=== PATIENT | female | born 1970 | race Hispanic/Latino ===

== ENCOUNTER 2019-09-23 20:09 | Observation (INO) | payer OTHER ==
[~2019-09-23] VITALS: Ht 162.6 cm; Wt 81.1 kg
[2019-09-23] MEDS ORDERED: KETOROLAC TROMETHAMINE 30MG/ML ONE (20:47)
[2019-09-23 20:53] LABS: BASOPHILS % (AUTO) 0.8 % (0.0-5.0); EOSINOPHILS % (AUTO) 2.7 % (0.0-8.0); HEMATOCRIT 48.7 % (36-48); LYMPHOCYTES % (AUTO) 19.7 % (21.0-51.0); MEAN CORPUSCULAR HEMOGLOBIN 28.3 pg (27.0-33.0); MEAN CORPUSCULAR HGB CONC 32.9 g/dL (32.0-36.0); MONOCYTES % (AUTO) 12.2 % (3.0-13.0); NEUTROPHILS % (AUTO) 64.1 % (40.0-77.0); PLATELET COUNT (AUTO) 222 K/uL (130-400); RED BLOOD CELL COUNT(AUTO) 5.66 MIL/uL (4.00-5.50); WHITE BLOOD COUNT (AUTO) 5.9 K/uL (4.8-10.8)
[2019-09-23 21:13] LABS: CREATININE 0.5 mg/dL (0.5-1.5); POTASSIUM 3.8 mmol/L (3.5-5.1)
[2019-09-23 21:18] LABS: ALBUMIN 3.6 g/dL (3.5-5.0); BILIRUBIN,TOTAL 0.3 mg/dL (0.2-1.0); INR 0.93 (0.85-1.15); PARTIAL THROMBOPLASTIN TIME 29.4 SEC (26.3-35.5); PROTHROMBIN TIME 9.8 SEC (9.6-11.6); TOTAL PROTEIN, SERUM 7.5 g/dL (6.0-8.3)
[2019-09-23] MEDS ORDERED: ASPIRIN 325 MG TABLET ONE (21:36)
[2019-09-23] MEDS ORDERED: OSELTAMIVIR PHOSPHATE 75 MG CAP ONE (22:33)
[2019-09-23 22:48] VITALS: BP 112/79
--- NOTE | 2019-09-23 22:50 | NUR ---
ADMISSION. PT TRANSFERRED FROM ER INTO ROOM 311. AWAKE, ALERT AND VERBALLY RESPONSIVE. NO C/O PAIN OR DISCOMFORT AT THIS TIME. DESKTOP SUPPORT ASSOCIATE PLACED ON PT. PT AND FAMILY MEMBER ORIENTED TO ROOM, CALL GON[facility] WITHIN REACH, BED IN LOWEST POSITION. Addendum: 09/23/19 at 2349 by JOANIE PRITCHARD RN Amended: Links added.
[2019-09-24] VITALS: BP 112/79
[2019-09-24 04:00] VITALS: BP 113/69
[2019-09-24 05:16] LABS: CREATINE KINASE, TOTAL 52 U/L (21-232); MYOGLOBIN 20 ng/mL (10-92); TROPONIN I < 0.04 ng/mL (0.00-0.06)
[2019-09-24 08:00] VITALS: BP 113/78
[2019-09-24 11:35] VITALS: BP 116/82
--- NOTE | 2019-09-24 14:36 | NUR ---
Initial Assessment SW met with patient. Patient lives with spouse. No home services or DME. Patient is independent and drives. PCP is Dr. Jn Clark. Pharmacy is [facility] located in [place]. DCP is home. Addendum: 09/24/19 at 1437 by ATINA RANDHAWA SS Amended: Links added.
[2019-09-24 16:00] VITALS: BP 119/74
[2019-09-24] MEDS ORDERED: OSELTAMIVIR PHOSPHATE 75 MG CAP PO SCH (17:15)
== END 2019-09-24 17:45 | disposition home or self-care (01) ==
LOC: EDH 20:09 → EDHIP 21:36 → 3BH 23:09
PROVIDERS: ADMIT Internal Medicine; ATTEND Internal Medicine
DX: R07.89 Other chest pain (principal); R94.39 Abnormal result of other cardiovascular function study; E78.00 Pure hypercholesterolemia, unspecified; Z90.49 Acquired absence of other specified parts of digestive tract; Z90.710 Acquired absence of both cervix and uterus; Z79.899 Other long term (current) drug therapy
CPT/HCPCS: 36415 ×2; 70450; 71045; 80053; 82550 ×2; 83874; 84484 ×2; 85025; 85610; 85730; 87804 ×2; 93005; 99284; G0378 ×18; J1885

== ENCOUNTER 2020-01-20 16:57 | Emergency (ER) | payer OTHER ==
[2020-01-20] MEDS ORDERED: ASPIRIN 325 MG TABLET ONE (17:26)
[2020-01-20] MEDS ORDERED: LIDOCAINE HCL 2% VISCOUS 15 ML UDCUP ONE (17:36)
[2020-01-20] MEDS ORDERED: MAG HYDROX/AL HYDROX/SIMETH ES 30 ML SUSP UDCUP ONE (17:36)
[2020-01-20 17:59] LABS: BASOPHILS % (AUTO) 0.6 % (0.0-5.0); EOSINOPHILS % (AUTO) 2.1 % (0.0-8.0); HEMATOCRIT 45.1 % (36-48); LYMPHOCYTES % (AUTO) 32.4 % (21.0-51.0); MEAN CORPUSCULAR HEMOGLOBIN 29.2 pg (27.0-33.0); MEAN CORPUSCULAR HGB CONC 32.6 g/dL (32.0-36.0); MEAN CORPUSCULAR VOLUME 89.7 fL (79-99); MONOCYTES % (AUTO) 6.1 % (3.0-13.0); NEUTROPHILS % (AUTO) 58.1 % (40.0-77.0); PLATELET COUNT (AUTO) 281 K/uL (130-400); RED BLOOD CELL COUNT(AUTO) 5.03 MIL/uL (4.00-5.50); RED CELL DISTRIBUTION WIDTH 12.4 % (11.0-15.5); WHITE BLOOD COUNT (AUTO) 9.4 K/uL (4.8-10.8)
[2020-01-20 18:19] LABS: CREATININE 0.6 mg/dL (0.5-1.5); POTASSIUM 3.7 mmol/L (3.5-5.1)
[2020-01-20 18:20] LABS: INR 0.9 (0.85-1.15); PARTIAL THROMBOPLASTIN TIME 26.8 SEC (26.3-35.5); PROTHROMBIN TIME 9.8 SEC (9.6-11.6)
[2020-01-20 18:27] LABS: ALBUMIN 3.3 g/dL (3.5-5.0); BILIRUBIN,TOTAL 0.2 mg/dL (0.2-1.0); TOTAL PROTEIN, SERUM 7.1 g/dL (6.0-8.3)
== END 2020-01-20 22:54 | disposition home or self-care (01) ==
LOC: EDH 16:57
DX: R07.89 Other chest pain (principal); E78.00 Pure hypercholesterolemia, unspecified; Z90.49 Acquired absence of other specified parts of digestive tract; Z90.710 Acquired absence of both cervix and uterus
CPT/HCPCS: 36415; 71046; 80053; 82550; 83690; 84484; 85025; 85610; 85730; 93005

== ENCOUNTER 2023-01-09 13:31 | Emergency (ER) | payer OTHER ==
[~2023-01-09] VITALS: Ht 154.9 cm; Wt 86.2 kg
[2023-01-09 14:21] LABS: HEMATOCRIT 48.4 % (36-48); MEAN CORPUSCULAR HEMOGLOBIN 28.5 pg (27.0-33.0); MEAN CORPUSCULAR HGB CONC 32.6 g/dL (32.0-36.0); MEAN CORPUSCULAR VOLUME 87.2 fL (79-99); RED BLOOD CELL COUNT(AUTO) 5.55 MIL/uL (4.00-5.50); WHITE BLOOD COUNT (AUTO) 8.8 K/uL (4.8-10.8)
[2023-01-09 14:38] LABS: CREATININE 0.6 mg/dL (0.5-1.5); POTASSIUM 3.6 mmol/L (3.5-5.1)
[2023-01-09 14:43] LABS: ALBUMIN 4.1 g/dL (3.5-5.0); TOTAL PROTEIN, SERUM 7.8 g/dL (6.0-8.3)
[2023-01-09] MEDS ORDERED: KETOROLAC 60 MG VIAL (30MG/ML) IM ONE (16:00)
[2023-01-09] MEDS ORDERED: ONDANSETRON 4MG TABLET PO ONE (16:00)
[2023-01-09 16:08] LABS: APPEARANCE,URINE CLEAR (CLEAR); BILIRUBIN,URINE NEGATIVE (NEGATIVE); COLOR,URINE LIGHT-YELLOW (YELLOW); GLUCOSE, URINE (UA) NEGATIVE (NEGATIVE); KETONES,URINE 20 mg/dL (NEGATIVE); LEUKOCYTE ESTERASE ,URINE NEGATIVE Leu/uL (NEGATIVE); NITRATE,URINE NEGATIVE (NEGATIVE); OCCULT BLOOD,URINE NEGATIVE (NEGATIVE); PROTEIN,URINE NEGATIVE (NEGATIVE); UROBILINOGEN,URINE 0.2 mg/dL (0.2-1.0)
[2023-01-09 16:12] LABS: BACTERIA,URINE RARE /HPF (None Seen); RBC,URINE 0-1 /HPF (0-1); SQUAMOUS EPITHELIAL CELL,UR RARE /HPF (0-2); WBC,URINE 0-1 /HPF (0-1)
[2023-01-09] MEDS ORDERED: ACET-66 PO (16:56)
[2023-01-09] MEDS ORDERED: ONDA-104 PO (16:56)
[2023-01-09 17:16] VITALS: BP 121/67
[2023-01-09] MEDS ORDERED: ONDANSETRON ODT 4MG TAB ONE (17:49)
== END 2023-01-09 17:59 | disposition home or self-care (01) ==
LOC: EDH 13:31
DX: R53.83 Other fatigue (principal); E86.0 Dehydration; E11.9 Type 2 diabetes mellitus without complications; E78.5 Hyperlipidemia, unspecified; F41.9 Anxiety disorder, unspecified; Z90.710 Acquired absence of both cervix and uterus; Z90.49 Acquired absence of other specified parts of digestive tract
CPT/HCPCS: 99283; 80053; 85027; 81001; 36415; 96372; J1885